=== PATIENT | female | born 1980 | race Caucasian/White ===

== ENCOUNTER 2019-11-16 14:42 | Emergency (ER) | payer MEDICAID, SELFPAY ==
[2019-11-16 14:45] VITALS: BP 108/69; PULSE 60; RESP 16; TEMP 36.8; O2SAT 98; BMI 28.9
--- NOTE | 2019-11-16 15:07 | CT_ITS ---
STUDY: CT BRAIN WITHOUT CONTRAST REASON FOR EXAM: Female, 39 years old. Dizziness, right-sided headache for 4 days and vision loss. RADIATION DOSAGE (If Supplied By Facility): CTDIvol = ( 44.99 ) mGy, DLP = ( 796.11 ) mGycm TECHNIQUE: Transaxial CT imaging of the brain was performed without administration of intravenous contrast material. Individualized dose optimization techniques were used for this CT. COMPARISON: No relevant priors. FINDINGS: Normal soft tissue structures. Normal calvarium. Normal size ventricles and extra-axial spaces for the patient''s age. Normal white matter tracts of the cerebral hemispheres. Normal basal ganglia and thalami. Normal brainstem. Normal cerebellum. There is no intracranial hemorrhage. There are no findings of an acute ischemic infarction. Normal visualized paranasal sinuses. CT/Brain/Head without Contrast IMPRESSION: Normal unenhanced CT scan of the brain. Electronically Signed: Dennis Broussard MD at 15:48 EDT Tel , Service support ,
[2019-11-16 15:15] LABS: Absolute Lymphocyte Count 2.44 X10^3/uL (0.83-4.51); Absolute Neutrophil Count 3.7 X10^3/uL (2.0-7.7); Basophil# 0.06 X10^3/uL; Basophil% 0.9 % (0-1); Eosinophil# 0.26 X10^3/uL; Eosinophils% 3.7 % (0-5); Hematocrit 39.9 % (37-47); Lymphocyte # 2.44 X10^3/ul (4.0); Mean Corp Hgb Conc 32.6 g/dL (32-36); Mean Corpuscular Hgb 29.4 pg (27.0-32.0); Mean Corpuscular Volume 90.3 fL (81-99); Mean Platelet Vol. 11.1 fl (6.2-12.0); Monocyte# 0.47 X10^3/uL; Monocyte% 6.7 % (0-10); NRBC Flagged by Analyzer 0 % (0-5); Neutrophil # 3.72 X10^3/uL (2.7-7.7); Neutrophil % 53.3 % (47-70); Platelet Count 262 K/mm3 (150-450); RBC Distribution Width CV 12.6 % (11.6-14.6); RBC Distribution Width SD 41.3 fl (35.1-43.9); Red Blood Count 4.42 M/mm3 (4.2-5.4)
[2019-11-16] MEDS: DiphenhydrAMINE 50 MG/ML Syringe IV (15:21)
[2019-11-16] MEDS: 0.9% Normal Saline 1,000 ML 1000 ML IV (15:21)
[2019-11-16] MEDS: Metoclopramide 10 MG/2 ML Vial IV (15:21)
[2019-11-16 15:32] LABS: Color, Urine Straw (Yellow); Glucose, Dipstick Normal (Normal); Internal QC Validated? YES +Cl - CLEAR BKGD; Ketone-Dipstick Negative (Negative); Leukocyte Esterase-Dipstick 500 /ul (Negative); Nitrite-Dipstick Negative (Negative); Occult Blood-Urine 25 /ul (Negative); Protein-Dipstick 15 mg/dl (Negative); Urine Bilirubin Dipstick Negative (Negative); Urine Clarity Cloudy (Clear); Urine Urobilinogen 4 mg/dl (Normal)
[2019-11-16 15:32] LABS: Anion Gap 4 (5-15); BUN 14 mg/dL (7-18); BUN/Creat Ratio 20.3 RATIO (10-20); Calcium,Total 8.5 mg/dL (8.5-10.1); Chloride 108 mmol/L (98-107); Creatinine, Serum 0.69 mg/dL (0.55-1.02); EST Glomerular Filtration Rate 100 mL/min (>60); Est Glom Filt Rate - Afr Amer 121 mL/min (>60); Glucose 103 mg/dL (74-106); Sodium Level 137 mmol/L (136-145)
[2019-11-16 15:33] LABS: Pregnancy, Urine Negative Negative
--- NOTE | 2019-11-16 15:36 | ED.DCSUM_ITS ---
History of Present Illness Informant: Patient, Significant Other Onset: Yesterday Context: Gradual Onset Timing: Intermittent Quality: sharp Location: Right side of head Current Severity: Mild Maximum Severity: Severe Worsened by: Nothing Relieved by: Nothing Associated Symptoms: Blurry vision right eye Narrative: 39-year-old female with a history of migraine headaches presents to the emergency department with a headache and blurry vision in her right eye. She and her significant other were having intercourse last night afterwards she started to have some blurry vision in her right eye and then developed a right- sided headache. Headache has persisted until today. She states the blurry vision lasted 30 minutes and has resolved. She did not have neck pain. she is not lightheaded or dizzy. No difficulty with speech no difficulty with ambulation no weakness or paresthesias. No head trauma. She is not on blood thinners. She was on medicines for migraines but has not been on any for a couple of years. Prior similar symptoms: Yes Recent Illness/Hospitalization: No <Darwin Chen - Last Filed: 11/16/19 15:55> <Juan Diego Simmons - Last Filed: 11/16/19 21:18> Chief Complaint: Dizziness Past Medical History Prior records reviewed: Yes Past Medical History: - - Migraine headaches Surgical History: no surgical history Lives: With Family Smoking Status: Former smoker Alcohol: Occasional Drugs: None <Darwin Cehn - Last Filed: 11/16/19 15:55> <Juan Diego Simmons - Last Filed: 11/16/19 21:18> - Allergies and Home Meds Allergies/Adverse Reactions: Allergies bee venom protein (honey bee) Allergy (Verified 11/16/19 14:43) Anaphylaxis Penicillins [PCN] Allergy (Verified 11/16/19 14:43) Anaphylaxis Primary Care Physician: VELIA EDWARDS [Other] Review of Systems All systems negative except as indicated General: Denies: Chills, Fever, Sweats Eyes: Reports: Visual changes - bilaterally, Blurred vision - right. Denies: Blurred vision - left, Diplopia ENT: Denies: Rhinorrhea, Sore throat Cardiovascular: Denies: Chest pain, Palpitations Respiratory: Denies: Dyspnea, Cough, Dyspnea on exertion Gastrointestinal: Denies: Abdominal pain, Nausea, Vomiting, Diarrhea, Melena, Hematochezia Genitourinary: Denies: Dysuria, Hematuria, Frequency Musculoskeletal: Denies: Back pain, Extremity Pain Skin: Denies: Rash, Wounds Neurological: Reports: Headache. Denies: Weakness, Parasthesia, Numbness <Darwin Chen - Last Filed: 11/16/19 15:55> Physical Exam Vital Signs/Narrative: Vital Signs Temp Pulse Resp BP Pulse Ox 11/16/19 14:45 98.2 F 60 16 108/69 98 Inital Vital Signs reviewed: Yes General: Well nourished, Well developed, No Acute Distress Head: Normocephalic, Atraumatic Eyes: Perrl, EOMI ENT: Moist mucous membranes, No rhinorrhea Neck: Supple, Nontender Cardiovascular: Regular rate, Regular rhythm, No murmurs Respiratory: No distress, CTA bilaterally, Chest nontender Abdomen: Soft, Nontender, Nondistended, Normal bowel sounds Back: Nontender, Normal Inspection Extremities: Nontender, No edema Skin: Normal color, No rash Neurological: Alert, Oriented x3, Cranial nerves II-XII grossly intact, Normal Strength, Normal Sensation, Normal Gait Psychological: Normal affect, Normal Mood <Darwin Chen - Last Filed: 11/16/19 15:55> Diagnostic/Tx/Re-eval Impressions Brain CT 11/16/19 15:07 IMPRESSION: Normal unenhanced CT scan of the brain. Electronically Signed: Dennis Broussard MD at 15:48 EDT Tel , Service support , 11/16/19 15:07 Brain/Head without Contrast [CT] Stat Laboratory Results 11/16/19 11/16/19 11/16/19 15:05 15:05 15:17 WBC 7.0 RBC 4.42 Hgb 13.0 Hct 39.9 MCV 90.3 MCH 29.4 MCHC 32.6 RDW Std Deviation 41.3 RDW Coeff of Darcy 12.6 Plt Count 262 MPV 11.1 Immature Gran % (Auto) 0.400 Neut % (Auto) 53.3 Lymph % (Auto) 35.0 [place] % (Auto) 6.7 Eos % (Auto) 3.7 Baso % (Auto) 0.9 Absolute Neuts (auto) 3.7 Absolute Lymphs (auto) 2.44 Nucleated RBC % 0 Sodium 137 Potassium 4.0 Chloride 108 H Carbon Dioxide 25.0 Anion Gap 4 L BUN 14 Creatinine 0.69 Estim Creat Clear Calc 114.40 Est GFR (MDRD) Af Amer 121 Est GFR (MDRD) Non-Af 100 BUN/Creatinine Ratio 20.3 H Glucose 103 Calcium 8.5 Urine Color Urine Clarity Urine pH Ur Specific [place] Urine Protein Urine Glucose (UA) Urine Ketones Urine Occult Blood Urine Nitrite Urine Bilirubin Urine Urobilinogen Ur Leukocyte Esterase Urine RBC Urine WBC Ur Squamous Epith Cells Ur Renal Epithelial Cell Urine Bacteria Urine Mucus Urine Test Negative 11/16/19 15:17 WBC RBC Hgb Hct MCV MCH MCHC RDW Std Deviation RDW Coeff of [place] Plt Count MPV Immature Gran % (Auto) Neut % (Auto) Lymph % (Auto) [place] % (Auto) Eos % (Auto) Baso % (Auto) Absolute Neuts (auto) Absolute Lymphs (auto) Nucleated RBC % Sodium Potassium Chloride Carbon Dioxide Anion Gap BUN Creatinine Estim Creat Clear Calc Est GFR (MDRD) Af Amer Est GFR (MDRD) Non-Af BUN/Creatinine Ratio Glucose Calcium Urine Color Straw Urine Clarity Cloudy Urine pH 6.0 Ur Specific [place] 1.020 Urine Protein 15 H Urine Glucose (UA) Normal Urine Ketones Negative Urine Occult Blood 25 H Urine Nitrite Negative Urine Bilirubin Negative Urine Urobilinogen 4 H Ur Leukocyte Esterase 500 H Urine RBC Not Reportable Urine WBC >100 SEEN Ur Squamous Epith Cells 5-10 SEEN Ur Renal Epithelial Cell 0-5 SEEN Urine Bacteria 2+ Urine Mucus 1+ Urine Test - Medical Decision Making Patient's neurological exam is nonfocal. Vital signs are stable. Her laboratory work was unremarkable. CT brain was unremarkable as well. Urinalysis consistent with urinary tract infection. Her headache was initially treated with Reglan and Benadryl and on repeat evaluation her headache is much improved. Patient feels well. Discussed with her that the blurry vision prior to the onset of her headache was likely an aura prior to her migraine. She does state her headache did feel like her previous migraines and with treatment today her headache is much improved. We will discharge her home with prescription for Bactrim for her UTI. <Darwin Chen - Last Filed: 11/16/19 15:55> - Medical Decision Making Patient was seen with me. I did a [id number] examination with the patient. Patient presents with a headache. Patient states her headache began last night. Patient states she was having some visual changes in her right eye. Patient states that after this she developed a headache. Patient states she has a history of migraine headaches. Patient states nothing makes her pain better or worse. Patient denies any fevers or chills. Patient denies any neck pain. Vital signs are stable. Patient is afebrile. Patient is in no acute distress. Oral mucosa is pink and moist. Neck is supple. Trachea is midline. There is no JVD. Pupils are equal, round, reactive to light bilaterally. Extraocular muscles were intact. Heart was regular rate and rhythm. Lungs are clear and equal bilaterally. Abdomen is soft. Bowel sounds are normal. There is no tenderness. Cranial nerves II through XII are intact. There are no focal motor or sensory deficits. Patient was given IV fluids, Reglan, and Benadryl. CT scan of the brain was obtained and was within normal limits. Urinalysis does show a urinary tract infection. Patient was feeling better on reevaluation. Patient was instructed to follow-up with her primary care physician in 5 to 7 days. Patient was given a prescription for Bactrim for her urinary tract infection. Patient understood and was agreeable with the plan. All questions were answered. <Juan Diego Simmons - Last Filed: 11/16/19 21:18> ED Disposition <Darwin Chen - Last Filed: 11/16/19 15:55> <Juan Diego Simmons - Last Filed: 11/16/19 21:18> - Plan for ED Patient: Disposition: Home or Assisted Living Diagnosis: Migraine headache with aura, UTI (urinary tract infection) Instructions: ED, Migraine (Classical), ED CYSTITIS Female Adult Prescriptions: Smz/Tmp Ds [Bactrim Ds] 1 tab PO BID #14 tab Transmission Status: Received by [facility]/pharmacy #[id number] Referrals: VELIA EDWARDS [Other]
[2019-11-16 15:45] LABS: Squamous Epithelial Cells - UA 5-10 SEEN /hpf (5-10); White Blood Cells >100 SEEN /hpf (0-5)
[2019-11-16 15:46] LABS: Bacteria 2+ /hpf (None Seen); Mucous, Urine 1+ /hpf (<or=2+); Renal Epithelial Cells 0-5 SEEN /hpf (0-5)
[2019-11-16 15:58] VITALS: BP 120/57; PULSE 55; RESP 18; O2SAT 99
== END 2019-11-16 16:03 | disposition home or self-care (01) ==
PROVIDERS: Emergency Provider Physician Assistant Medical
DX: G43.109 Migraine with aura, not intractable, without status migrainosus (principal); N39.0 Urinary tract infection, site not specified; Z87.891 Personal history of nicotine dependence
CPT/HCPCS: 70450; 80048; 81001; 81025; 85025; 96374; 96375; 99283; J7030; A4216